=== PATIENT | female | born 1965 | race Caucasian/White ===

== ENCOUNTER → 2018-07-07 | Outpatient (CLI) | payer OTHER | LOC: RAD 10:06 | DX: M51.35 Other intervertebral disc degeneration, thoracolumbar region (principal); M43.27 Fusion of spine, lumbosacral region; M96.1 Postlaminectomy syndrome, not elsewhere classified ==

== ENCOUNTER → 2018-07-14 | Outpatient (CLI) | payer OTHER | LOC: CAT 11:21 | DX: M47.814 Spondylosis without myelopathy or radiculopathy, thoracic region (principal); M48.04 Spinal stenosis, thoracic region; M25.78 Osteophyte, vertebrae; M96.1 Postlaminectomy syndrome, not elsewhere classified ==